=== PATIENT | female | born 1950 | race Hispanic/Latino ===

== ENCOUNTER 2017-06-06 16:19 | Emergency (ER) | payer MEDICARE ==
[2017-06-06 16:31] VITALS: TEMP 97.8
[2017-06-06 18:10] VITALS: BP 124/78; PULSE 74; RESP 18; O2SAT 96
--- NOTE | 2017-06-06 18:39 | C.PDOC ---
History Of Present Illness 67 y/o female presents to the ED c/o left arm pain since 3am s/p trip and fall. The patient notes directly landing on her on elbow. Pain agrravated my movement. Pain worse at the humerus, radiates from the elbow to the shoulder. Right hand dominate. The patient denies change in sensation, head and other new injuries. Time Seen by Provider: 06/06/17 16:47 Chief Complaint (Nursing): Upper Extremity Problem/Injury History Per: Patient Onset/Duration Of Symptoms: Hrs Current Symptoms Are (Timing): Still Present Quality: "Pain" Additional History Per: Patient Past Medical History Reviewed: Historical Data, Nursing Documentation, Vital Signs Vital Signs: Last Vital Signs Temp 97.8 F 06/06/17 16:26 Pulse 74 06/06/17 18:09 Resp 18 06/06/17 18:09 BP 124/78 06/06/17 18:09 Pulse Ox 96 06/06/17 19:01 - Medical History PMH: Anxiety, Asthma, Depression Surgical History: No Surg Hx Family History: States: No Known Family Hx - Social History Hx Alcohol Use: Yes Hx Substance Use: No - Immunization History Hx Tetanus Toxoid Vaccination: No Hx Influenza Vaccination: No Hx Pneumococcal Vaccination: No Review Of Systems Except As Marked, All Systems Reviewed And Found Negative. Constitutional: Negative for: Fever Cardiovascular: Negative for: Chest Pain Musculoskeletal: Positive for: Arm Pain (left ) Neurological: Negative for: Change in Speech, Headache, Dizziness Physical Exam - Physical Exam Appears: Non-toxic, No Acute Distress Skin: Dry Head: Atraumatic, Normacephalic Eye(s): bilateral: Normal Inspection, EOMI Nose: Normal Oral Mucosa: Moist Neck: Normal ROM, Supple Chest: Symmetrical Respiratory: No Accessory Muscle Use Extremity: No Normal ROM (decrased ROM at the shoulder secondary to pain), Tenderness (TTP at the humerus and decrease rang of motion at the shoulder secondary to pain; non tender at the elbow), Capillary Refill (2<sec. ), No Swelling Pulses: Left Radial: Normal, Right Radial: Normal Neurological/Psych: Oriented x3, Normal Speech, Normal Cognition, Normal Sensation Gait: Steady ED Course And Treatment O2 Sat by Pulse Oximetry: 96 (RA) - Other Rad Humerus XR X-Ray: Interpreted by Me, Viewed By Me Interpretation: No fx or dislocated as read by me and Dr Leonard Progress Note: Posterior splint applied by urinalysis technician. Shoulder sling applied. The patient is advised to have a 1-2 day follow up with the her ortho for further evaluation. Disposition - Disposition Disposition: HOME/ ROUTINE Disposition Time: 18:59 Condition: STABLE Additional Instructions: Rest, ice and elevate the area. Follow up with your bone doctor in 1-2 days. Return to ER if symptoms persist or worsen. Prescriptions: traMADol [Ultram] 50 mg PO Q8 #20 tab Instructions: Contusion in Adults (ED) Forms: [facility] (Lithuanian) - Clinical Impression Clinical Impression: Arm contusion - PA / LAB SPECIALIST / Resident Statement MD/DO has examined the patient and agrees with the treatment plan. - Scribe Statement The provider has reviewed the documentation as recorded by the Scribronit Garcia
--- NOTE | 2017-06-07 08:35 | RAD ---
PROCEDURE: Radiographs of the left humerus. HISTORY: trauma COMPARISON: None. FINDINGS: BONES: Normal. No fracture or focal lesion. SOFT TISSUES: Globular calcification adjacent to greater tuberosity consistent with calcific tendinitis. OTHER FINDINGS: None. IMPRESSION: No fracture. Calcific tendinitis. Otherwise unremarkable. Preliminary interpretation of this examination was reported by [facility] at 7:44 p.m. on 06/06/2017.. There is concurrence of this report with the preliminary interpretation.
== END 2017-06-06 19:20 | disposition home or self-care (01) ==
LOC: C.ER 16:19
DX: S40.022A Contusion of left upper arm, initial encounter (principal); W01.0XXA Fall on same level from slipping, tripping and stumbling without subsequent striking against object, initial encounter